=== PATIENT | female | born 1945 | race Caucasian/White ===

== ENCOUNTER → 2017-10-15 | Outpatient (CLI) | payer MEDICARE, OTHER ==
[~2017-10-15] MED LIST: DIAZ5 PO; HYDMOR2 PO; LEVSOD100 PO; METPRE4 PO; METPRE4DP PO; NAPR500 PO; OXYACE5T PO
[2017-10-16 14:44] LABS: Stool Occult Bld Immuno 1 Negative (NEGATIVE); Stool Occult Bld Immuno 2 Negative (NEGATIVE); Stool Occult Bld Immuno 3 Negative (NEGATIVE)
== END | disposition home or self-care (01) ==
LOC: LAB SHORT 01:50 → LAB 01:50 → LAB FUT 10-10 17:10
PROVIDERS: Internal Medicine
DX: D50.9 Iron deficiency anemia, unspecified (principal)
CPT/HCPCS: 82274

== ENCOUNTER → 2018-02-18 | Outpatient (CLI) | payer MEDICARE, OTHER ==
[~2018-02-18] MED LIST changes: +AMIT25 PO; +BUPRENORPHINE1 EAC1; +Calcium Carb 51 EACH PO; +DIAZ10 PO; +ESCI10 PO; +Ferrous Sulfat325 M2 PO; +GABA300 PO; +HYDR1TAB94 PO; +Imitrex100 MG PO; +LEVO-T125 MCG PO; +Multiple Vitam1 EACH PO; +NAPR220 PO; +OXYC10TA19; +PROC25S PR; +TUMERIC; +Vitamin C500 M3 PO
[2018-02-20 14:50] LABS: Stool Occult Bld Immuno 1 Negative (NEGATIVE)
== END ==
LOC: LAB 15:24 → LAB SHORT 15:24 → EDSTATUS 01-27 17:30 → LAB FUT 01-27 17:30
PROVIDERS: Internal Medicine Gastroenterology
DX: K92.1 Melena (principal)
CPT/HCPCS: 82274

== ENCOUNTER 2018-09-10 13:42 | Inpatient (IN) | payer MEDICARE, OTHER ==
[~2018-09-10] VITALS: Ht 154.9 cm; Wt 82.5 kg
[~2018-09-10 13:42] MED LIST changes: -HYDR1TAB94 PO
[2018-09-10 15:09] LABS: BASOPHILS ABSOLUTE AUTO 0.01 K/mm3 (0.00-0.23); BASOPHILS PERCENT AUTO 0 % (0-2); EOSINOPHILS ABSOLUTE AUTO 0.05 K/mm3 (0.00-0.68); EOSINOPHILS PERCENT AUTO 1 % (0-6); IMMATURE GRAN ABSOLUTE AUTO 0.03 K/mm3 (0.00-0.10); IMMATURE GRAN PERCENT AUTO 0 % (0-1); LYMPHOCYTES ABSOLUTE AUTO 1.52 K/mm3 (0.84-5.20); LYMPHOCYTES PERCENT AUTO 20 % (21-46); MONOCYTES ABSOLUTE AUTO 0.84 K/mm3 (0.16-1.47); MONOCYTES PERCENT AUTO 11 % (4-13); Mean Corpuscular HGB 14.4 pg (26.0-34.0); Mean Corpuscular HGB Conc 24.7 g/dL (31.5-36.5); Mean Corpuscular Volume 58 fL (80-100); Mean Platelet Volume 10.1 fL (9.1-12.4); NEUTROPHILS ABSOLUTE AUTO 5.29 K/mm3 (1.96-9.15); NEUTROPHILS PERCENT AUTO 68 % (41-73); NRBC ABSOLUTE 0.05 K/mm3 (0.00-0.02); NRBC Auto 0.6 /100 WBC (0.0-0.2); Platelet Count 495 K/mm3 (150-400); RDW Coefficient Variation 21.2 % (11.7-14.2); RDW Standard Deviation 41.5 fL (35.1-46.3); Red Blood Cell Count 1.67 M/mm3 (3.80-5.20); White Blood Cell Count 7.74 K/mm3 (4.00-11.30)
[2018-09-10 15:14] LABS: Hematocrit 9.7 % (33.0-51.0); Hemoglobin 2.4 g/dL (11.5-16.0)
[2018-09-10 15:20] LABS: Alanine Aminotransfer (ALT/SGP 67 U/L (12-78); Albumin, Blood 3.4 g/dL (3.4-5.0); Albumin/Globulin Ratio 0.9 (0.8-1.8); Alk Phos 124 U/L (50-136); Anion Gap 11 mmol/L (6-16); Aspartate Aminotrans (AST/SGOT 74 U/L (12-37); Bilirubin, Total 0.4 mg/dL (0.1-1.0); Blood Urea Nitrogen 13 mg/dL (8-24); Bun/Creatinine Ratio 16.3 (12.0-20.0); CO2, Blood 21 mmol/L (21-32); Calcium, Blood 8.5 mg/dL (8.5-10.1); Chloride, Blood 107 mmol/L (98-108); Globulin, Blood 3.7 g/dL (2.2-4.0); Glomerular Filtration Rate >60 (60-); Glucose, Blood 114 mg/dL (70-99); Potassium, Blood 3.5 mmol/L (3.5-5.5); Sodium, Blood 139 mmol/L (136-145); Total Protein, Blood 7.1 g/dL (6.4-8.2); Troponin I 0.024 ng/mL (0.000-0.040)
[2018-09-10 15:54] LABS: Percent Saturation 2.1 % (15.0-50.0)
[2018-09-10] MEDS ORDERED: Neurontin 300300 MG PO (16:07)
[2018-09-10] MEDS ORDERED: AMIT25 PO (16:09)
[2018-09-10] MEDS ORDERED: Zantac150 MG PO (16:52)
[2018-09-10] MEDS ORDERED: HYDR1TAB94 PO (16:52)
--- NOTE | 2018-09-11 05:58 | NUR ---
SHIFT SUMMARY PT RESTING COMFORTABLY IN ROOM. PT HAS BEEN RECIEVING PRBC'S T/O SHIFT AND TOLERATING WELL. SINCE ARRIVAL PT HAS FINISHED SECOND UNIT OF BLOOD AND WILL SOON FINISH THIRD. FOURTH UNIT TO BE STARTED THIS AM, PER PROVIDER ORDER. PT TOLERATING BLOOD TRANSFUSIONS WELL, LS REMAIN CLEAR, NO SOB NOTED. VSS. RESP EVEN UNLABORED ON RA W/ SATS >95%. PT COLOR APPEARS TO BE IMPROVING, AND PT REPORTS FEELING WARMER, AND "BETTER". DENIES ANY CP. REPORTS MILD BACK PAIN D/T BACK SURGERY PREVIOUS YEAR. H/H TO BE DRAWN THIS AM, AFTER LAST UNIT OF PRBC'S ADMINISTERED. DENIES OTHER NEEDS AT THIS TIME. CALL LIGHT IN REACH.
--- NOTE | 2018-09-11 07:46 | NUR ---
AM NOTE. ASSUMED CARE OF PT APROX 0700. PT IS A&Ox4 AND SBA IN THE ROOM. PT WAS ADMITTED FOR IRON DEFICENCY ANEMIA. PT IS CURRENTLY GETTING HER 4TH UNIT OF PRBCS. PT'S VS STABLE AT THIS TIME. PT STATES SHE IS FEELING BETTER. PT'S HRR AND L/S HAVE FINE CRACKELS NOTED IN THE BASES BILATERALLY. PT IS ON RA WITH O2 AT 97%. PT IS C/O OF INCREASING BACK PAIN, PT STATES SHE HAS CHRONIC PAIN ISSUES. CALL LIGHT IN REACH, BED IS LOCKED AND LOW WILL CONTINUE TO MONITOR.
[2018-09-11 10:18] LABS: Hemoglobin 7.5 g/dL (11.5-16.0)
--- NOTE | 2018-09-11 18:28 | NUR ---
SHIFT SUMMARY. NO ACUTE CHANGES NOTED THIS SHIFT. PT'S VS HAVE BEEN STABLE. PT C/O OF "FEELING RUMMY." AND BEING "LIGHTHEADED" WHEN SHE GETS UP TO WALK TO THE BATHROOM. PT HAS BEEN VERY AXIOUS THIS SHIFT, PT STATES THAT SHE HAS "RESTLESS LEG SYNDROME" AND THAT SHE IS "HAVING A FLARE UP." PT'S LEGS ARE MOVING BACK AN FORTH ON THE BED, PT IS ALSO ROCKING HERSELF BACK AND FORTH ON THE BED. PT HAS SLEPT FOR APROX 3-4 HOURS THIS SHIFT. PT HAS NOT HAD A BM. PT HAD FAMILY AT THE BEDSIDE DURING DINNER TIME. FAMILY UPDATED. CALL LIGHT IN REACH, BED IS LOCKED AND LOW WILL CONTINUE TO MONITOR.
--- NOTE | 2018-09-11 19:50 | NUR ---
ASSUMED CARE PT SLEEPING IN ROOM COMFORTABLY AT THIS TIME. PER DAY SHIFT PT H/H INCREASED TO THERAPUETIC LEVEL FOR PT. PER SOLER, NO FURTHER BLOOD TO BE GIVEN AT THIS TIME. RESP EVEN UNLBAORED ON RA W/ SATS >92% AT THIS TIME. PT LSEPEING VERY SOUNDLY IN ROOM. DID NOT SLEEP WELL PREVIOUS NIGHT. PT COLOR LOOKS MUCH IMPRVOED AND APPEARS TO BE MUCH MORE COMFORTABLE THAN PREVIOUS NIGHT. CALL LIGHT IS IN REACH.
[2018-09-12 03:59] LABS: Hematocrit 24.6 % (33.0-51.0); Hemoglobin 7.6 g/dL (11.5-16.0)
--- NOTE | 2018-09-12 05:32 | NUR ---
SHIFT SUMMARY PT SLEEPING IN ROOM COMFORTABLY AT THIS TIME. NO ACUTE CHANGES IN STATUS T/O NIGHT. PT SLEPT WELL AND HAD NO COMPLAINTS OF PAIN, OR RESTLESSNESS. PT REPORTS FEELING BETTER, BUT HAS CONTINUED SOB W/ EXERTION. PT COLOR MUCH IMPROVED. PT HAD SOME CONFUSION UPON WAKING, BUT WAS ABLE TO REORIENT W/O ASSIST. RESP EVEN UNLBOARED ON RA W/ SATS >92%. ALL OTHER VSS. DENIES OTHER NEEDS. CALL LIGHT IN REACH.
--- NOTE | 2018-09-12 12:26 | NUR ---
Pastoral care visitation conducted. Pt was speaking with her daughter on the telephone upon entry and finished closing salutations accordingly. Pt was amicable and reports feeling "decent" considering her previous few days. Pt shared about her current condition, her circumstance, and her family support. Active listening provided as pt divulged her thoughts and emotions. Validating feedback, encouragement, and assurance of prayer offered. Pt was appreciative and elevated in mood subsequently.
--- NOTE | 2018-09-12 17:21 | NUR ---
PATIENT BROUGHT TO THE UNIT FROM PCU. PATIENT STATED SHE WANTED A SHOWER WE HAVE HER IV WRAPPED AND SHE IS READY. SHE HAS BEEN GIVEN ALL THE NEEDED SUPPLIES AND WE HAVE BEEN TOLD SHE IS INDEPENDENT IN THE ROOM. CURRENTLY CHECKING ON THE PATIENT EVERY 20 MINUTES TO SEE IF SHE HAS TAKEN HER SHOWER AND HER TELE MAY BE PLACED.
--- NOTE | 2018-09-12 17:27 | NUR ---
PATIENT REQUESTING HER PAIN MEDICATION BE ADJUSTED TO HAVING ONE WHOLE NORCO EVERY 6 HOURS SHE STATES THIS IS HOW SHE TAKES HER MEDICATIONS AT HOME. CURRENTLY THE PATIENT IS ON ONE HALF A NORCO TABLET Q12 AND AWAITING FOR ANY OTHER ANSWERS.
--- NOTE | 2018-09-12 17:29 | NUR ---
SHIFT SUMMARY PATIENT IS PLEASANT, BROUGHT TO THE FLOOR AT 1715. SHE WANTED A SHOWER AND HAS BEEN SET UP FOR THIS. SHE IS INDEPENDENT IN THE ROOM AND ALERT AND ORIENTED. NO ACUTE CONCERNS PER PATIENT.
[2018-09-12 20:23] LABS: Hematocrit 25.2 % (33.0-51.0); Hemoglobin 7.7 g/dL (11.5-16.0)
[2018-09-13 05:49] LABS: BASOPHILS ABSOLUTE AUTO 0.05 K/mm3 (0.00-0.23); BASOPHILS PERCENT AUTO 1 % (0-2); EOSINOPHILS ABSOLUTE AUTO 0.34 K/mm3 (0.00-0.68); EOSINOPHILS PERCENT AUTO 5 % (0-6); Hematocrit 24.8 % (33.0-51.0); Hemoglobin 7.5 g/dL (11.5-16.0); IMMATURE GRAN ABSOLUTE AUTO 0.05 K/mm3 (0.00-0.10); IMMATURE GRAN PERCENT AUTO 1 % (0-1); LYMPHOCYTES ABSOLUTE AUTO 2.02 K/mm3 (0.84-5.20); LYMPHOCYTES PERCENT AUTO 27 % (21-46); MONOCYTES ABSOLUTE AUTO 0.85 K/mm3 (0.16-1.47); MONOCYTES PERCENT AUTO 11 % (4-13); Mean Corpuscular HGB 22.9 pg (26.0-34.0); Mean Corpuscular HGB Conc 30.2 g/dL (31.5-36.5); Mean Corpuscular Volume 76 fL (80-100); Mean Platelet Volume 10.5 fL (9.1-12.4); NEUTROPHILS ABSOLUTE AUTO 4.17 K/mm3 (1.96-9.15); NEUTROPHILS PERCENT AUTO 56 % (41-73); NRBC ABSOLUTE 0.04 K/mm3 (0.00-0.02); NRBC Auto 0.5 /100 WBC (0.0-0.2); Platelet Count 409 K/mm3 (150-400); RDW Coefficient Variation 27.9 % (11.7-14.2); RDW Standard Deviation 72.5 fL (35.1-46.3); Red Blood Cell Count 3.28 M/mm3 (3.80-5.20); White Blood Cell Count 7.48 K/mm3 (4.00-11.30)
--- NOTE | 2018-09-13 06:12 | NUR ---
SHIFT SUMMARY: 72 Y/O FEMALE RESTED COMFORTABLY ALL SHIFT, NPO SINCE MIDNIGHT FOR PENDING EGD TEST THIS AM. PT HAPPY AND COOPERATIVE, DENIES PAIN OR NAUSEA. PTS HG 7.5 THIS AM WITH PATIENT ADVISED OF RESULTS BY THIS NURSE FROM AM LAB DRAW. PTS BED LOW POSITION, CALL LIGHT AT SIDE.
--- NOTE | 2018-09-13 11:00 | NUR ---
Patient confirms NPO status and agrees with scheduled surgery. Lungs clear T/O to Auscultation.
--- NOTE | 2018-09-13 11:15 | NUR ---
09/13/18 1115 Francesca Lindsay History, Chart, Medications and Allergies reviewed before start of procedure.PATIENT DETERMINED TO BE ASA APPROPRIATE FOR PROPOFOL SEDATION PRIOR TO START OF PROCEDURE BY .MONITOR INTACT WITH CONTINUOUS PULSE OXIMETRY AND INTERMITTENT BP.3-LEAD EKG REVIEWED WITH PHYSICIAN PRIOR TO START OF PROCEDURE.O2 VIA N/C INTACT THROUGHOUT SEDATION/PROCEDURE.
[2018-09-13 13:42] LABS: Stool Occult Blood Guaiac 1 Neg (Neg)
--- NOTE | 2018-09-13 18:20 | NUR ---
shift summary patient has gone for a push egd today. no acute concerns from the patient. she reports that she was ready to go home but her family member was not home until tomorrow. patient has had multiple visitors in all day. dr. figueroa's plan is to discharge the patient to home tomorrow. no seen cause of bleeding. patient noted to have a hiatal hernia and an ulcer with no management from dr. campos needed.
--- NOTE | 2018-09-14 04:02 | NUR ---
SHIFT SUMMARY: 75 Y/O FEMALE RESTED COMFORTABLY ALL SHIFT WITH NO PAIN OR NAUSEA. PT HOPING TO BE DISCHARGED HOME TODAY. PTS BED LOW POSITION, CALL LIGHT AT SIDE.
[2018-09-14 04:45] LABS: BASOPHILS ABSOLUTE AUTO 0.05 K/mm3 (0.00-0.23); BASOPHILS PERCENT AUTO 1 % (0-2); EOSINOPHILS ABSOLUTE AUTO 0.38 K/mm3 (0.00-0.68); EOSINOPHILS PERCENT AUTO 4 % (0-6); Hemoglobin 7.6 g/dL (11.5-16.0); IMMATURE GRAN ABSOLUTE AUTO 0.07 K/mm3 (0.00-0.10); IMMATURE GRAN PERCENT AUTO 1 % (0-1); LYMPHOCYTES ABSOLUTE AUTO 1.73 K/mm3 (0.84-5.20); LYMPHOCYTES PERCENT AUTO 19 % (21-46); MONOCYTES PERCENT AUTO 12 % (4-13); Mean Platelet Volume 10.2 fL (9.1-12.4); NEUTROPHILS ABSOLUTE AUTO 5.74 K/mm3 (1.96-9.15); NEUTROPHILS PERCENT AUTO 63 % (41-73); NRBC ABSOLUTE 0.05 K/mm3 (0.00-0.02); NRBC Auto 0.6 /100 WBC (0.0-0.2); Platelet Count 402 K/mm3 (150-400); White Blood Cell Count 9.07 K/mm3 (4.00-11.30)
[2018-09-14 04:47] LABS: Hematocrit 26.3 % (33.0-51.0)
[2018-09-14 04:48] LABS: Mean Corpuscular HGB Conc 28.9 g/dL (31.5-36.5); Mean Corpuscular Volume 80 fL (80-100)
[2018-09-14] MEDS ORDERED: OMEPRAZOLE20 MG PO (12:40)
[2018-09-14] MEDS ORDERED: ACET325 PO (12:41)
[2018-09-14] MEDS ORDERED: ESCI10 PO (12:42)
[2018-09-14] MEDS ORDERED: MELATONIN5 M1 PO (12:43)
[2018-09-14] MEDS ORDERED: Sucralfate1 GM/10 ML PO (13:16)
--- NOTE | 2018-09-14 15:01 | NUR ---
discharge summary patient is pleasant. all information given to the patient and her family members prior to discharge. patients iv was removed yesterday evening as it had infiltrated. there is no acute concerns from the patient and time of discharge and will assess for any changes prior to discharge. patient was wheeled out all medications were sent to the pharmacy.
[2018-12-19] MEDS ORDERED: Imitrex50 MG PO (13:40)
[2018-12-19] MEDS ORDERED: AMIT25 PO (13:40)
[2018-12-19] MEDS ORDERED: PROC25S PR (13:41)
[2018-12-19] MEDS ORDERED: Daily Multiple1 EACH PO (13:42)
[2018-12-19] MEDS ORDERED: DIAZ10 PO (13:42)
[2018-12-19] MEDS ORDERED: Vitamin K100 MCG (13:43)
[2018-12-19] MEDS ORDERED: SUCR1 PO (13:43)
[2018-12-19] MEDS ORDERED: ASCO500 PO (13:43)
== END 2018-09-14 14:36 | disposition home or self-care (01) | DRG 812 ==
LOC: ER 13:42 → PCU 16:46 → ERHOLD 16:46 → MEDS 16:46 → PCU 22:16 → MEDS 09-12 17:01 → ENPENDDIS 09-14 12:44 → MEDS 09-14 14:36
PROVIDERS: Emergency Medicine; Hospitalist; Internal Medicine Gastroenterology; Physician Assistant; ADMIT Internal Medicine
PROC: 30233N1 Transfusion of Nonautologous Red Blood Cells into Peripheral Vein, Percutaneous Approach (ICD-10-PCS; 2018-09-11)
PROC: 0DJ08ZZ Inspection of Upper Intestinal Tract, Via Natural or Artificial Opening Endoscopic (ICD-10-PCS; principal; 2018-09-13 09:00)
DX: D50.9 Iron deficiency anemia, unspecified (principal); K22.70 Barrett's esophagus without dysplasia; K44.9 Diaphragmatic hernia without obstruction or gangrene; G89.29 Other chronic pain; G43.909 Migraine, unspecified, not intractable, without status migrainosus; E03.9 Hypothyroidism, unspecified; Z87.891 Personal history of nicotine dependence; M54.9 Dorsalgia, unspecified; K25.9 Gastric ulcer, unspecified as acute or chronic, without hemorrhage or perforation
CPT/HCPCS: 36415; 36430; 71046; 80053; 82272; 83540; 83550; 83690; 84484; 85014; 85018; 85025; 86850; 86900; 86901; 86923; 93005; 93010; 96374; 96376; 99285-25; A9270; A9270-GY; C9113; J2405; J2704; J2916; J7030; J7120; P9016

== ENCOUNTER 2018-12-26 12:20 | Day surgery (SDC) | payer MEDICARE, OTHER ==
[~2018-12-26] VITALS: Ht 152.4 cm; Wt 73.6 kg
[~2018-12-26 12:20] MED LIST changes: +ACET325 PO; +ASCO500 PO; +Daily Multiple1 EACH PO; +HYDR1TAB94 PO; +Imitrex50 MG PO; +MELATONIN5 M1 PO; +Neurontin 300300 MG PO; +OMEPRAZOLE20 MG PO; +SUCR1 PO; +Sucralfate1 GM/10 ML PO; +Vitamin K100 MCG; +Zantac150 MG PO
== END 2018-12-26 14:13 | disposition home or self-care (01) ==
LOC: ORSCSDS 12:20
PROVIDERS: Internal Medicine Gastroenterology
PROC: 0DB58ZX Excision of Esophagus, Via Natural or Artificial Opening Endoscopic, Diagnostic (ICD-10-PCS; principal; 2018-12-26 13:30)
DX: D50.9 Iron deficiency anemia, unspecified (principal); K25.3 Acute gastric ulcer without hemorrhage or perforation; K44.9 Diaphragmatic hernia without obstruction or gangrene; K21.9 Gastro-esophageal reflux disease without esophagitis; Z86.73 Personal history of transient ischemic attack (TIA), and cerebral infarction without residual deficits; E03.9 Hypothyroidism, unspecified; Z79.899 Other long term (current) drug therapy
CPT/HCPCS: 88305; J2704; J7120

== ENCOUNTER → 2019-03-17 | Outpatient (CLI) | payer MEDICARE, OTHER ==
[2019-03-17 18:48] LABS: Blood Urea Nitrogen 29 mg/dL (8-24); Creatinine, Blood 0.68 mg/dL (0.40-1.00); Glomerular Filtration Rate >60 (60-)
== END ==
LOC: LAB SHORT 17:29 → LAB 17:29
PROVIDERS: Hospitalist
DX: M54.5 Low back pain (principal)
CPT/HCPCS: 36415; 82565; 84520

== ENCOUNTER 2019-04-06 08:33 | Day surgery (SDC) | payer MEDICARE, OTHER ==
--- NOTE | 2019-04-06 12:27 | NUR ---
PATIENT TOLERATED RECOVERY WELL. HOME PAIN MEDS RESOLVED CHRONIC PAIN. PT OUR VIA WC WITH SPOUSE. Discharge instructions reviewed with patient. Patient verbalizes understanding. Copy given to patient to take home.
== END 2019-04-06 23:02 | disposition home or self-care (01) ==
LOC: RAD 08:33 → CT 10:00 → RAD 23:02
DX: M54.5 Low back pain (principal); G89.29 Other chronic pain; G43.909 Migraine, unspecified, not intractable, without status migrainosus; E78.5 Hyperlipidemia, unspecified; E03.9 Hypothyroidism, unspecified; Z79.899 Other long term (current) drug therapy; Z79.891 Long term (current) use of opiate analgesic; Z88.6 Allergy status to analgesic agent; Z88.2 Allergy status to sulfonamides; Z88.1 Allergy status to other antibiotic agents; Z88.8 Allergy status to other drugs, medicaments and biological substances
CPT/HCPCS: 62304; 72132; A9270-GY; Q9966

== ENCOUNTER → 2019-05-26 | Outpatient (CLI) | payer MEDICARE, OTHER ==
[2019-05-26 18:46] LABS: BASOPHILS ABSOLUTE AUTO 0.04 K/mm3 (0.00-0.23); BASOPHILS PERCENT AUTO 1 % (0-2); EOSINOPHILS ABSOLUTE AUTO 0.17 K/mm3 (0.00-0.68); EOSINOPHILS PERCENT AUTO 2 % (0-6); Hematocrit 30.9 % (33.0-51.0); Hemoglobin 8.8 g/dL (11.5-16.0); IMMATURE GRAN ABSOLUTE AUTO 0.04 K/mm3 (0.00-0.10); IMMATURE GRAN PERCENT AUTO 1 % (0-1); LYMPHOCYTES ABSOLUTE AUTO 2.04 K/mm3 (0.84-5.20); LYMPHOCYTES PERCENT AUTO 29 % (21-46); MONOCYTES ABSOLUTE AUTO 0.65 K/mm3 (0.16-1.47); MONOCYTES PERCENT AUTO 9 % (4-13); Mean Corpuscular HGB 25.4 pg (26.0-34.0); Mean Corpuscular HGB Conc 28.5 g/dL (31.5-36.5); Mean Corpuscular Volume 89 fL (80-100); Mean Platelet Volume 11.3 fL (9.1-12.4); NEUTROPHILS ABSOLUTE AUTO 4.03 K/mm3 (1.96-9.15); NEUTROPHILS PERCENT AUTO 58 % (41-73); Platelet Count 471 K/mm3 (150-400); RDW Coefficient Variation 15.8 % (11.7-14.2); RDW Standard Deviation 51.2 fL (35.1-46.3); Red Blood Cell Count 3.47 M/mm3 (3.80-5.20); White Blood Cell Count 6.97 K/mm3 (4.00-11.30)
== END ==
LOC: LAB SHORT 18:00 → LAB 18:00
PROVIDERS: Hospitalist
DX: K29.70 Gastritis, unspecified, without bleeding (principal)
CPT/HCPCS: 85025

== ENCOUNTER → 2019-11-03 | Outpatient (CLI) | payer MEDICARE, OTHER ==
[~2019-11-03] MED LIST changes: +Ativan1 MG PO; +BENZ100A PO; +EUTHYROX125 MCG PO; -LEVO-T125 MCG PO; +MIRT15 PO; +PANT40 PO; +TIZA4 PO; +TRAZ100 PO
[2019-11-04 14:29] LABS: Stool Occult Bld Immuno 1 Negative (NEGATIVE); Stool Occult Bld Immuno 2 Negative (NEGATIVE)
== END | disposition home or self-care (01) ==
LOC: LAB 14:57 → LAB SHORT 14:57
PROVIDERS: Internal Medicine Gastroenterology
DX: K25.0 Acute gastric ulcer with hemorrhage (principal); K92.1 Melena
CPT/HCPCS: 82274

== ENCOUNTER 2020-02-13 16:34 | Emergency (ER) | payer MEDICARE ==
[~2020-02-13] VITALS: Ht 154.9 cm; Wt 77.1 kg
[2020-02-13 17:08] LABS: BASOPHILS ABSOLUTE AUTO 0.03 K/mm3 (0.00-0.23); BASOPHILS PERCENT AUTO 0 % (0-2); EOSINOPHILS ABSOLUTE AUTO 0.03 K/mm3 (0.00-0.68); EOSINOPHILS PERCENT AUTO 0 % (0-6); Hematocrit 31.1 % (33.0-51.0); Hemoglobin 9.1 g/dL (11.5-16.0); IMMATURE GRAN ABSOLUTE AUTO 0.02 K/mm3 (0.00-0.10); IMMATURE GRAN PERCENT AUTO 0 % (0-1); LYMPHOCYTES ABSOLUTE AUTO 1.64 K/mm3 (0.84-5.20); LYMPHOCYTES PERCENT AUTO 18 % (21-46); MONOCYTES ABSOLUTE AUTO 0.72 K/mm3 (0.16-1.47); MONOCYTES PERCENT AUTO 8 % (4-13); Mean Corpuscular HGB 25.3 pg (26.0-34.0); Mean Corpuscular HGB Conc 29.3 g/dL (31.5-36.5); Mean Corpuscular Volume 86 fL (80-100); Mean Platelet Volume 9.2 fL (9.1-12.4); NEUTROPHILS ABSOLUTE AUTO 6.57 K/mm3 (1.96-9.15); NEUTROPHILS PERCENT AUTO 73 % (41-73); Platelet Count 576 K/mm3 (150-400); RDW Coefficient Variation 17.8 % (11.7-14.2); RDW Standard Deviation 56.2 fL (35.1-46.3); White Blood Cell Count 9.01 K/mm3 (4.00-11.30)
[2020-02-13 17:33] LABS: Alanine Aminotransfer (ALT/SGP 39 U/L (12-78); Albumin/Globulin Ratio 0.9 (0.8-1.8); Alk Phos 94 U/L (50-136); Anion Gap 9 mmol/L (6-16); Aspartate Aminotrans (AST/SGOT 22 U/L (12-37); Bilirubin, Total 0.2 mg/dL (0.1-1.0); Blood Urea Nitrogen 20 mg/dL (8-24); Bun/Creatinine Ratio 29.7 (12.0-20.0); CO2, Blood 21 mmol/L (21-32); Calcium, Blood 9.3 mg/dL (8.5-10.1); Chloride, Blood 108 mmol/L (98-108); Creatinine, Blood 0.67 mg/dL (0.40-1.00); Globulin, Blood 4.3 g/dL (2.2-4.0); Glomerular Filtration Rate >60 (60-); Glucose, Blood 109 mg/dL (70-99); Potassium, Blood 3.8 mmol/L (3.5-5.5); Sodium, Blood 138 mmol/L (136-145); Total Protein, Blood 8.3 g/dL (6.4-8.2)
[2020-02-13] MEDS ORDERED: IMITREX100 MG PO (18:42)
[2020-02-13 19:01] LABS: CPK Creatine Kinase 53 U/L (26-193); Troponin I <0.015 ng/mL (0.000-0.040)
[2020-02-13 20:55] LABS: Influenza A, PCR Negative (NEGATIVE); Influenza B, PCR Negative (NEGATIVE); Resp Syncytial Virus, PCR Negative (NEGATIVE); SARS-Cov-2 (COVID-19) PCR, MMC Negative (NEGATIVE)
[2020-02-13 21:45] LABS: Source, Urine Voided
[2020-02-13 21:46] LABS: Bilirubin, Urine Neg (Neg); Blood, Urine 4+ (Neg); Glucose Qualitative, Urine Neg (Neg); Ketones, Urine Neg (Neg); Leukocyte Esterase, Urine 3+ (Neg); Nitrite, Urine Neg (Neg); Protein, Urine 1+ (Neg); Specific Gravity, Urine 1.015 (1.003-1.022); Urobilinogen, Urine NORM (Normal)
[2020-02-13 21:48] LABS: Appearance, Urine Hazy (Clear); Color, Urine Yellow (P-Yellow)
[2020-02-13 21:54] LABS: Amorphous Light (0-Heavy); Bacteria Few /hpf; Mucus Light (0-Heavy); Red Blood Cells, Urine 0-2 /hpf (0-2); Squamous Epithelial Cells Few /hpf (Few)
[2020-02-13] MEDS ORDERED: KEFLEX500 MG PO (23:57)
== END 2020-02-14 | disposition home or self-care (01) ==
LOC: ER 16:34
PROVIDERS: Emergency Medicine; Physician Assistant
DX: N39.0 Urinary tract infection, site not specified (principal); D64.9 Anemia, unspecified; R51.9 Headache, unspecified; Z88.6 Allergy status to analgesic agent; Z88.2 Allergy status to sulfonamides; Z88.8 Allergy status to other drugs, medicaments and biological substances; Z79.899 Other long term (current) drug therapy; Z20.828 Contact with and (suspected) exposure to other viral communicable diseases
CPT/HCPCS: 0241U; 71045; 74177; 80053; 81001; 82550; 83605; 83690; 84484; 85025; 87086; 93005; 93010; 96365-59; 96375; 96376; 99285-25; A9270-GY; J0696; J1200; J2405; J2765; J3010; J7030; Q9967

== ENCOUNTER 2020-04-19 13:44 | Observation (INO) | payer MEDICARE, OTHER ==
[~2020-04-19] VITALS: Ht 154.9 cm; Wt 88.5 kg
[~2020-04-19 13:44] MED LIST changes: -Ativan1 MG PO; -EUTHYROX125 MCG PO; -GABA300 PO; +KEFLEX500 MG PO; -Neurontin 300300 MG PO; -PANT40 PO; -TRAZ100 PO
[2020-04-19 14:40] LABS: BASOPHILS ABSOLUTE AUTO 0.04 K/mm3 (0.00-0.23); BASOPHILS PERCENT AUTO 1 % (0-2); EOSINOPHILS ABSOLUTE AUTO 0.01 K/mm3 (0.00-0.68); EOSINOPHILS PERCENT AUTO 0 % (0-6); Hematocrit 24.1 % (33.0-51.0); Hemoglobin 6.3 g/dL (11.5-16.0); IMMATURE GRAN ABSOLUTE AUTO 0.02 K/mm3 (0.00-0.10); IMMATURE GRAN PERCENT AUTO 0 % (0-1); LYMPHOCYTES ABSOLUTE AUTO 1.18 K/mm3 (0.84-5.20); LYMPHOCYTES PERCENT AUTO 15 % (21-46); MONOCYTES ABSOLUTE AUTO 0.67 K/mm3 (0.16-1.47); MONOCYTES PERCENT AUTO 8 % (4-13); Mean Corpuscular HGB 19.6 pg (26.0-34.0); Mean Corpuscular HGB Conc 26.1 g/dL (31.5-36.5); Mean Corpuscular Volume 75 fL (80-100); Mean Platelet Volume 9.3 fL (9.1-12.4); NEUTROPHILS ABSOLUTE AUTO 6.11 K/mm3 (1.96-9.15); NEUTROPHILS PERCENT AUTO 76 % (41-73); Platelet Count 516 K/mm3 (150-400); RDW Coefficient Variation 17.4 % (11.7-14.2); RDW Standard Deviation 47.6 fL (35.1-46.3); Red Blood Cell Count 3.21 M/mm3 (3.80-5.20); White Blood Cell Count 8.03 K/mm3 (4.00-11.30)
[2020-04-19 14:57] LABS: Alanine Aminotransfer (ALT/SGP 33 U/L (12-78); Albumin, Blood 3.6 g/dL (3.4-5.0); Albumin/Globulin Ratio 0.8 (0.8-1.8); Alk Phos 96 U/L (50-136); Anion Gap 9 mmol/L (6-16); Aspartate Aminotrans (AST/SGOT 24 U/L (12-37); Bilirubin, Total 0.2 mg/dL (0.1-1.0); Blood Urea Nitrogen 17 mg/dL (8-24); Bun/Creatinine Ratio 28.5 (12.0-20.0); CO2, Blood 21 mmol/L (21-32); Calcium, Blood 9.3 mg/dL (8.5-10.1); Chloride, Blood 108 mmol/L (98-108); Globulin, Blood 4.5 g/dL (2.2-4.0); Glomerular Filtration Rate >60 (60-); Glucose, Blood 112 mg/dL (70-99); Sodium, Blood 138 mmol/L (136-145); Total Protein, Blood 8.1 g/dL (6.4-8.2)
[2020-04-19] MEDS ORDERED: MOTION RELIEF25 M1 PO (16:08)
[2020-04-19] MEDS ORDERED: Ativan1 MG PO (16:08)
[2020-04-19] MEDS ORDERED: REMERON15 M1 PO (16:09)
[2020-04-19] MEDS ORDERED: TRAZ100 PO (16:09)
[2020-04-19] MEDS ORDERED: ZANAFLEX4 M4 PO (16:09)
[2020-04-19] MEDS ORDERED: GABA300 PO (16:15)
[2020-04-19] MEDS ORDERED: PANT40 PO (16:15)
[2020-04-19] MEDS ORDERED: Neurontin 300300 MG PO (16:16)
[2020-04-19] MEDS ORDERED: ESCI10 PO (16:17)
[2020-04-19] MEDS ORDERED: IMITREX50 MG PO (16:30)
[2020-04-19] MEDS ORDERED: EUTHYROX125 MCG PO (16:55)
[2020-04-19 20:27] LABS: Hematocrit 25.3 % (33.0-51.0); Hemoglobin 7.1 g/dL (11.5-16.0)
[2020-04-20 00:28] LABS: Hematocrit 25.5 % (33.0-51.0); Hemoglobin 7.2 g/dL (11.5-16.0)
--- NOTE | 2020-04-20 04:15 | NUR ---
SHIFT SUMMARY ADMITTED FOR GI BLEED. FULL CODE. 1 UNIT OF BLOOD TRANSFUSED. Q4 HR H&H LABS. HGB HAS RISEN, HGB 7.2 AT LAST LAB - AWAITING NEXT LAB. PROTONIX INFUSING ORDERED. NS W/KCL INFUSING ORDERED. PT IS NPO. PT REQUESTED IV PAIN AND ANXIETY MEDICATION THIS SHIFT. GI CONSULT IS DR LLOYD.
[2020-04-20 05:24] LABS: BASOPHILS ABSOLUTE AUTO 0.04 K/mm3 (0.00-0.23); BASOPHILS PERCENT AUTO 1 % (0-2); EOSINOPHILS ABSOLUTE AUTO 0.14 K/mm3 (0.00-0.68); EOSINOPHILS PERCENT AUTO 2 % (0-6); Hematocrit 26.2 % (33.0-51.0); Hemoglobin 7.3 g/dL (11.5-16.0); IMMATURE GRAN ABSOLUTE AUTO 0.01 K/mm3 (0.00-0.10); IMMATURE GRAN PERCENT AUTO 0 % (0-1); LYMPHOCYTES ABSOLUTE AUTO 1.95 K/mm3 (0.84-5.20); LYMPHOCYTES PERCENT AUTO 27 % (21-46); MONOCYTES ABSOLUTE AUTO 0.71 K/mm3 (0.16-1.47); MONOCYTES PERCENT AUTO 10 % (4-13); Mean Corpuscular HGB 21.5 pg (26.0-34.0); Mean Corpuscular HGB Conc 27.9 g/dL (31.5-36.5); Mean Corpuscular Volume 77 fL (80-100); NEUTROPHILS ABSOLUTE AUTO 4.46 K/mm3 (1.96-9.15); NEUTROPHILS PERCENT AUTO 61 % (41-73); NRBC ABSOLUTE 0.02 K/mm3 (0.00-0.02); NRBC Auto 0.3 /100 WBC (0.0-0.2); RDW Coefficient Variation 17.7 % (11.7-14.2); RDW Standard Deviation 49.8 fL (35.1-46.3); Red Blood Cell Count 3.39 M/mm3 (3.80-5.20); White Blood Cell Count 7.31 K/mm3 (4.00-11.30)
[2020-04-20 05:50] LABS: Mean Platelet Volume 9.2 fL (9.1-12.4)
[2020-04-20 05:52] LABS: Anion Gap 6 mmol/L (6-16); Blood Urea Nitrogen 15 mg/dL (8-24); Bun/Creatinine Ratio 23.9 (12.0-20.0); CO2, Blood 23 mmol/L (21-32); Calcium, Blood 8.3 mg/dL (8.5-10.1); Chloride, Blood 110 mmol/L (98-108); Creatinine, Blood 0.63 mg/dL (0.40-1.00); Ferritin, Serum 6 ng/mL (8-252); Glomerular Filtration Rate >60 (60-); Glucose, Blood 97 mg/dL (70-99); Iron Serum 65 ug/dL (50-170); Percent Saturation 12.2 % (15.0-50.0); Potassium, Blood 4.2 mmol/L (3.5-5.5); Sodium, Blood 139 mmol/L (136-145); Total Iron Binding Capacity 531 ug/dL (250-450)
[2020-04-20 07:34] LABS: Influenza A, PCR NEGATIVE (NEGATIVE); Influenza B, PCR NEGATIVE (NEGATIVE); Resp Syncytial Virus, PCR NEGATIVE (NEGATIVE); SARS-Cov-2 (COVID-19) PCR, MMC NEGATIVE (NEGATIVE)
--- NOTE | 2020-04-20 08:46 | NUR ---
04/20/20 0846 GURDEEP OLVERA History, Chart, Medications and Allergies reviewed before start of procedure. 3-LEAD EKG REVIEWED WITH PHYSICIAN PRIOR TO START OF PROCEDURE. MONITOR INTACT WITH CONTINUOUS PULSE OXIMETRY AND INTERMITTENT BP. O2 VIA N/C INTACT THROUGHOUT SEDATION/PROCEDURE. PATIENT DETERMINED TO BE ASA APPROPRIATE FOR PROPOFOL SEDATION PRIOR TO START OF PROCEDURE BY DR. LLOYD.
[2020-04-20 10:04] LABS: Hematocrit 25.6 % (33.0-51.0)
--- NOTE | 2020-04-20 11:57 | NUR ---
Spiritual care visit conducted. Upon receiving an admit referral for spiritual care, I visit patient. She only has time to tell me about the events that led to her hospitalization, her procedure this morning and the wonderful support system she has in place before she has to use the restroom. I tell patient I will check-in with her later and she states that she would like that. I will continue to remain available to patient and family.
[2020-04-20 14:56] LABS: Hematocrit 26.9 % (33.0-51.0); Hemoglobin 7.5 g/dL (11.5-16.0)
[2020-04-20] MEDS ORDERED: OMEP20ER PO (15:58)
[2020-04-20] MEDS ORDERED: ACET325 PO (15:58)
[2020-04-20] MEDS ORDERED: HYDR1TAB94 PO (15:59)
[2020-04-20] MEDS ORDERED: MURINE EAR BOTHEARS (15:59)
[2020-04-20] MEDS ORDERED: DIAZ5 PO (16:00)
[2020-04-20] MEDS ORDERED: FERSU300 PO (16:18)
== END 2020-04-20 16:50 | disposition home or self-care (01) ==
LOC: ER 13:44 → ERHOLD 13:45 → MEDS 13:45
PROVIDERS: Internal Medicine Gastroenterology; Nurse Practitioner Acute Care; Physician Assistant; Student in an Organized Health Care Education/Training Program; ADMIT Internal Medicine
DX: D62 Acute posthemorrhagic anemia (principal); K44.9 Diaphragmatic hernia without obstruction or gangrene; K25.4 Chronic or unspecified gastric ulcer with hemorrhage; K29.51 Unspecified chronic gastritis with bleeding; K22.2 Esophageal obstruction; K22.70 Barrett's esophagus without dysplasia; G43.909 Migraine, unspecified, not intractable, without status migrainosus; E03.9 Hypothyroidism, unspecified; K21.9 Gastro-esophageal reflux disease without esophagitis; F41.9 Anxiety disorder, unspecified; F32.9 Major depressive disorder, single episode, unspecified; H61.23 Impacted cerumen, bilateral; G89.29 Other chronic pain; M54.5 Low back pain; G47.00 Insomnia, unspecified; R42 Dizziness and giddiness; Z20.822 Contact with and (suspected) exposure to COVID-19; Z86.711 Personal history of pulmonary embolism; Z88.6 Allergy status to analgesic agent; Z88.1 Allergy status to other antibiotic agents; Z88.2 Allergy status to sulfonamides; Z88.8 Allergy status to other drugs, medicaments and biological substances; Z87.11 Personal history of peptic ulcer disease; Z79.899 Other long term (current) drug therapy
CPT/HCPCS: 0241U; 36415; 36430; 80048; 80053; 82728; 83540; 83550; 85014; 85018; 85025; 86850; 86900; 86901; 86923; 88305; 88342; 93005; 93010; 96361; 96365; 96375; 96376; 99285-25; A9270; C1726; C9113; G0378; J1170; J2060; J2405; J2704; J3010; J3480; J7030; J7120; P9016

== ENCOUNTER → 2020-12-09 | Outpatient (CLI) | payer MEDICARE, OTHER ==
[~2020-12-09] MED LIST changes: +Ativan1 MG PO; +DOCU100 PO; +ESCITALOPRAM OX10 M1 PO; +EUTHYROX125 MCG PO; +FERSU300 PO; +GABA300 PO; +IMITREX50 MG PO; +MOTION RELIEF25 M1 PO; +MURINE EAR BOTHEARS; +Neurontin 300300 MG PO; +OMEP20ER PO; +PANT40 PO; +PANTOPRAZOLE SO40 M2 PO; +REMERON15 M1 PO; +TRAZ100 PO; +ZANAFLEX PO; +ZANAFLEX4 M4 PO
[2020-12-09 15:27] LABS: BASOPHILS ABSOLUTE AUTO 0.04 K/mm3 (0.00-0.23); BASOPHILS PERCENT AUTO 1 % (0-2); EOSINOPHILS ABSOLUTE AUTO 0.25 K/mm3 (0.00-0.68); EOSINOPHILS PERCENT AUTO 5 % (0-6); Hematocrit 20.9 % (33.0-51.0); IMMATURE GRAN ABSOLUTE AUTO 0.02 K/mm3 (0.00-0.10); IMMATURE GRAN PERCENT AUTO 0 % (0-1); LYMPHOCYTES ABSOLUTE AUTO 1.29 K/mm3 (0.84-5.20); LYMPHOCYTES PERCENT AUTO 23 % (21-46); MONOCYTES ABSOLUTE AUTO 0.58 K/mm3 (0.16-1.47); MONOCYTES PERCENT AUTO 10 % (4-13); Mean Corpuscular HGB 22.8 pg (26.0-34.0); Mean Corpuscular HGB Conc 28.7 g/dL (31.5-36.5); Mean Corpuscular Volume 80 fL (80-100); Mean Platelet Volume 9.3 fL (9.1-12.4); NEUTROPHILS ABSOLUTE AUTO 3.41 K/mm3 (1.96-9.15); NEUTROPHILS PERCENT AUTO 61 % (41-73); NRBC ABSOLUTE 0.02 K/mm3 (0.00-0.02); NRBC Auto 0.4 /100 WBC (0.0-0.2); Platelet Count 363 K/mm3 (150-400); RDW Standard Deviation 65.4 fL (35.1-46.3); Red Blood Cell Count 2.63 M/mm3 (3.80-5.20); White Blood Cell Count 5.59 K/mm3 (4.00-11.30)
[2020-12-09 15:46] LABS: Alanine Aminotransfer (ALT/SGP 28 U/L (12-78); Albumin, Blood 3.6 g/dL (3.4-5.0); Albumin/Globulin Ratio 0.9 (0.8-1.8); Alk Phos 81 U/L (40-126); Anion Gap 11 mmol/L (6-16); Aspartate Aminotrans (AST/SGOT 21 U/L (12-37); Bilirubin, Total 0.3 mg/dL (0.1-1.0); Blood Urea Nitrogen 15 mg/dL (8-24); CO2, Blood 26 mmol/L (21-32); Calcium, Blood 8.4 mg/dL (8.5-10.1); Chloride, Blood 105 mmol/L (98-108); Creatinine, Blood 0.75 mg/dL (0.40-1.00); Glomerular Filtration Rate >60 (60-); Glucose, Blood 109 mg/dL (70-99); Potassium, Blood 3.9 mmol/L (3.5-5.5); Sodium, Blood 142 mmol/L (136-145); Thyroid Stimulating Hormone 5.664 uIU/mL (0.360-4.800); Total Protein, Blood 7.6 g/dL (6.4-8.2)
== END | disposition home or self-care (01) ==
LOC: LAB SHORT 15:21 → LAB 15:21
PROVIDERS: Physician Assistant
DX: R06.00 Dyspnea, unspecified (principal); R53.83 Other fatigue; Z87.19 Personal history of other diseases of the digestive system
CPT/HCPCS: 80053; 84443; 85025; 85379

== ENCOUNTER → 2020-12-13 | Outpatient (CLI) | payer MEDICARE, OTHER ==
[2020-12-13 15:33] LABS: Hematocrit 31.3 % (33.0-51.0); Hemoglobin 9.4 g/dL (11.5-16.0)
== END | disposition home or self-care (01) ==
LOC: LAB SHORT 14:45
PROVIDERS: Hospitalist
DX: D50.0 Iron deficiency anemia secondary to blood loss (chronic) (principal)
CPT/HCPCS: 85014; 85018

== ENCOUNTER 2021-01-03 06:54 | Observation (INO) | payer MEDICARE, OTHER ==
[~2021-01-03] VITALS: Ht 154.9 cm; Wt 83.0 kg
[2021-01-04 05:01] LABS: BASOPHILS ABSOLUTE AUTO 0.02 K/mm3 (0.00-0.23); BASOPHILS PERCENT AUTO 0 % (0-2); EOSINOPHILS PERCENT AUTO 0 % (0-6); Hematocrit 30.2 % (33.0-51.0); IMMATURE GRAN ABSOLUTE AUTO 0.03 K/mm3 (0.00-0.10); IMMATURE GRAN PERCENT AUTO 0 % (0-1); LYMPHOCYTES ABSOLUTE AUTO 1.44 K/mm3 (0.84-5.20); LYMPHOCYTES PERCENT AUTO 15 % (21-46); MONOCYTES ABSOLUTE AUTO 0.89 K/mm3 (0.16-1.47); MONOCYTES PERCENT AUTO 9 % (4-13); Mean Corpuscular HGB 25.4 pg (26.0-34.0); Mean Corpuscular HGB Conc 29.8 g/dL (31.5-36.5); Mean Corpuscular Volume 85 fL (80-100); NEUTROPHILS ABSOLUTE AUTO 7.26 K/mm3 (1.96-9.15); NEUTROPHILS PERCENT AUTO 75 % (41-73); Platelet Count 364 K/mm3 (150-400); RDW Coefficient Variation 20.8 % (11.7-14.2); Red Blood Cell Count 3.55 M/mm3 (3.80-5.20); White Blood Cell Count 9.64 K/mm3 (4.00-11.30)
[2021-01-04 05:16] LABS: Anion Gap 5 mmol/L (6-16); Blood Urea Nitrogen 16 mg/dL (8-24); Bun/Creatinine Ratio 26.5 (12.0-20.0); CO2, Blood 26 mmol/L (21-32); Calcium, Blood 8.4 mg/dL (8.5-10.1); Chloride, Blood 107 mmol/L (98-108); Glomerular Filtration Rate >60 (60-); Glucose, Blood 113 mg/dL (70-99); Potassium, Blood 3.6 mmol/L (3.5-5.5); Sodium, Blood 138 mmol/L (136-145)
[2021-01-05] MEDS ORDERED: HYDR1TAB94 PO (08:56)
[2021-01-05] MEDS ORDERED: ONDA4ODT MM (08:58)
== END 2021-01-05 11:31 | disposition home or self-care (01) ==
LOC: ORSCMMR 06:54 → ORD 08:30 → SURS 12:59 → ORSCMMR 12:59 → SURS 14:24
PROVIDERS: ADMIT Surgery
PROC: 0DV44ZZ Restriction of Esophagogastric Junction, Percutaneous Endoscopic Approach (ICD-10-PCS; principal; 2021-01-03 08:30)
PROC: 0BUT4JZ Supplement Diaphragm with Synthetic Substitute, Percutaneous Endoscopic Approach (ICD-10-PCS; principal; 2021-01-03 08:30)
DX: K44.9 Diaphragmatic hernia without obstruction or gangrene (principal); K25.4 Chronic or unspecified gastric ulcer with hemorrhage; E03.9 Hypothyroidism, unspecified; E78.5 Hyperlipidemia, unspecified; Z88.6 Allergy status to analgesic agent; Z88.1 Allergy status to other antibiotic agents; Z88.2 Allergy status to sulfonamides; Z88.8 Allergy status to other drugs, medicaments and biological substances
CPT/HCPCS: 36415; 80048; 85025; 96372; 96375; 96376; A9270; C1781; G0378; J0690; J1100; J1170; J1650; J1885; J2270; J2370; J2405; J2550; J2704; J2765; J3010; J7120

== ENCOUNTER → 2021-11-09 | Outpatient (CLI) | payer MEDICARE, OTHER ==
[~2021-11-09] MED LIST changes: +ONDA4ODT MM
[2021-11-09 19:37] LABS: BASOPHILS ABSOLUTE AUTO 0.03 K/mm3 (0.00-0.23); BASOPHILS PERCENT AUTO 0 % (0-2); EOSINOPHILS ABSOLUTE AUTO 0.04 K/mm3 (0.00-0.68); EOSINOPHILS PERCENT AUTO 1 % (0-6); Hematocrit 40.4 % (33.0-51.0); Hemoglobin 13.4 g/dL (11.5-16.0); IMMATURE GRAN ABSOLUTE AUTO 0.01 K/mm3 (0.00-0.10); IMMATURE GRAN PERCENT AUTO 0 % (0-1); LYMPHOCYTES ABSOLUTE AUTO 1.48 K/mm3 (0.84-5.20); LYMPHOCYTES PERCENT AUTO 21 % (21-46); MONOCYTES ABSOLUTE AUTO 0.69 K/mm3 (0.16-1.47); MONOCYTES PERCENT AUTO 10 % (4-13); Mean Corpuscular HGB 30.6 pg (26.0-34.0); Mean Corpuscular HGB Conc 33.2 g/dL (31.5-36.5); Mean Corpuscular Volume 92 fL (80-100); Mean Platelet Volume 12.3 fL (9.1-12.4); NEUTROPHILS ABSOLUTE AUTO 4.92 K/mm3 (1.96-9.15); NEUTROPHILS PERCENT AUTO 69 % (41-73); Platelet Count 286 K/mm3 (150-400); RDW Standard Deviation 43.8 fL (35.1-46.3); Red Blood Cell Count 4.38 M/mm3 (3.80-5.20); White Blood Cell Count 7.17 K/mm3 (4.00-11.30)
[2021-11-09 19:57] LABS: Free Thyroxine 1.32 ng/dL (0.70-1.60)
[2021-11-09 20:06] LABS: Thyroid Stimulating Hormone 2.16 uIU/mL (0.360-4.800); Triiodothyronine, Free 3.14 pg/mL (2.18-3.98)
[2021-11-09 20:07] LABS: Bilirubin, Total 0.3 mg/dL (0.1-1.0); Bun/Creatinine Ratio 24.5 (12.0-20.0); Calcium, Blood 9.5 mg/dL (8.5-10.1); Creatinine, Blood 0.7 mg/dL (0.40-1.00); Potassium, Blood 3.9 mmol/L (3.5-5.5)
== END | disposition home or self-care (01) ==
LOC: LAB SHORT 14:30
PROVIDERS: Hospitalist
DX: D50.9 Iron deficiency anemia, unspecified (principal); E03.9 Hypothyroidism, unspecified; R60.9 Edema, unspecified
CPT/HCPCS: 80053; 84439; 84443; 84481; 85025

== ENCOUNTER 2022-01-22 19:41 | Emergency (ER) | payer MEDICARE, OTHER ==
[~2022-01-22] VITALS: Ht 154.9 cm; Wt 79.4 kg
[2022-01-22 21:05] LABS: BASOPHILS ABSOLUTE AUTO 0.03 K/mm3 (0.00-0.23); BASOPHILS PERCENT AUTO 1 % (0-2); EOSINOPHILS ABSOLUTE AUTO 0.09 K/mm3 (0.00-0.68); EOSINOPHILS PERCENT AUTO 2 % (0-6); Hematocrit 38.3 % (33.0-51.0); Hemoglobin 12.8 g/dL (11.5-16.0); IMMATURE GRAN ABSOLUTE AUTO 0.01 K/mm3 (0.00-0.10); IMMATURE GRAN PERCENT AUTO 0 % (0-1); LYMPHOCYTES ABSOLUTE AUTO 2.11 K/mm3 (0.84-5.20); LYMPHOCYTES PERCENT AUTO 36 % (21-46); MONOCYTES ABSOLUTE AUTO 0.62 K/mm3 (0.16-1.47); MONOCYTES PERCENT AUTO 11 % (4-13); Mean Corpuscular HGB 30.7 pg (26.0-34.0); Mean Corpuscular HGB Conc 33.4 g/dL (31.5-36.5); Mean Corpuscular Volume 92 fL (80-100); Mean Platelet Volume 9.6 fL (9.1-12.4); NEUTROPHILS ABSOLUTE AUTO 2.98 K/mm3 (1.96-9.15); NEUTROPHILS PERCENT AUTO 51 % (41-73); Platelet Count 353 K/mm3 (150-400); RDW Standard Deviation 43.6 fL (35.1-46.3); Red Blood Cell Count 4.17 M/mm3 (3.80-5.20); White Blood Cell Count 5.84 K/mm3 (4.00-11.30)
[2022-01-22 21:24] LABS: Albumin, Blood 3.4 g/dL (3.4-5.0); Albumin/Globulin Ratio 0.8 (0.8-1.8); Bilirubin, Total 0.2 mg/dL (0.1-1.0); Bun/Creatinine Ratio 36.3 (12.0-20.0); Calcium, Blood 8.9 mg/dL (8.5-10.1); Creatinine, Blood 0.55 mg/dL (0.40-1.00); Potassium, Blood 3.9 mmol/L (3.5-5.5); Total Protein, Blood 7.4 g/dL (6.4-8.2)
[2022-01-22] MEDS ORDERED: KETO10 PO (23:26)
== END 2022-01-22 23:47 | disposition home or self-care (01) ==
LOC: ER 19:41
PROVIDERS: Emergency Medicine
DX: R51.9 Headache, unspecified (principal); I10 Essential (primary) hypertension; E03.9 Hypothyroidism, unspecified; Z88.6 Allergy status to analgesic agent; Z88.2 Allergy status to sulfonamides; Z88.8 Allergy status to other drugs, medicaments and biological substances; Z79.899 Other long term (current) drug therapy
CPT/HCPCS: 36415; 80053; 84484; 85025; 93005; 93010; J0780; J1200; J1885; J2405; J7030

== ENCOUNTER 2022-02-08 10:57 | Day surgery (SDC) | payer MEDICARE, OTHER ==
[~2022-02-08] VITALS: Ht 154.9 cm; Wt 84.7 kg
[~2022-02-08 10:57] MED LIST changes: +KETO10 PO
== END 2022-02-08 12:58 | disposition home or self-care (01) ==
LOC: ORSCSDS 10:57
PROVIDERS: Ophthalmology
PROC: 08DJ3ZZ Extraction of Right Lens, Percutaneous Approach (ICD-10-PCS; principal; 2022-02-08 12:00)
DX: H25.11 Age-related nuclear cataract, right eye (principal); H21.81 Floppy iris syndrome; F32.A Depression, unspecified; D64.9 Anemia, unspecified; E78.5 Hyperlipidemia, unspecified; E03.9 Hypothyroidism, unspecified; Z86.711 Personal history of pulmonary embolism; E66.9 Obesity, unspecified; Z68.35 Body mass index [BMI] 35.0-35.9, adult; Z79.899 Other long term (current) drug therapy
CPT/HCPCS: J2001; J2250; J3010; J3301; J7040; V2632

== ENCOUNTER 2022-02-22 12:20 | Day surgery (SDC) | payer MEDICARE, OTHER ==
[~2022-02-22] VITALS: Ht 154.9 cm; Wt 84.6 kg
[2022-02-22] MEDS ORDERED: ACET325 PO (13:40)
== END 2022-02-22 14:55 | disposition home or self-care (01) ==
LOC: ORSCSDS 12:20
PROVIDERS: Ophthalmology
PROC: 08DK3ZZ Extraction of Left Lens, Percutaneous Approach (ICD-10-PCS; principal; 2022-02-22 13:30)
DX: H25.12 Age-related nuclear cataract, left eye (principal); Z96.1 Presence of intraocular lens; H21.81 Floppy iris syndrome; I10 Essential (primary) hypertension; K21.9 Gastro-esophageal reflux disease without esophagitis; E66.9 Obesity, unspecified; Z68.35 Body mass index [BMI] 35.0-35.9, adult; E78.5 Hyperlipidemia, unspecified; E03.9 Hypothyroidism, unspecified; Z86.711 Personal history of pulmonary embolism; Z79.899 Other long term (current) drug therapy
CPT/HCPCS: J2001; J2250; J3010; J3301; J7040; V2632

== ENCOUNTER 2024-07-29 19:44 | Emergency (ER) | payer OTHER ==
[~2024-07-29] VITALS: Ht 160 cm; Wt 95.2 kg
[~2024-07-29 19:44] MED LIST changes: +FURO40 PO; +LOSA50 PO; +MELO7.5 PO; +WOMENS MULTIVITAMIN PO
[2024-07-29 21:16] LABS: BASOPHILS ABSOLUTE AUTO 0.03 K/mm3 (0.00-0.23); BASOPHILS PERCENT AUTO 0 % (0-2); EOSINOPHILS PERCENT AUTO 0 % (0-6); Hematocrit 42.1 % (33.0-51.0); IMMATURE GRAN ABSOLUTE AUTO 0.07 K/mm3 (0.00-0.10); IMMATURE GRAN PERCENT AUTO 0 % (0-1); LYMPHOCYTES PERCENT AUTO 8 % (21-46); MONOCYTES ABSOLUTE AUTO 0.93 K/mm3 (0.16-1.47); MONOCYTES PERCENT AUTO 6 % (4-13); Mean Corpuscular HGB 30.6 pg (26.0-34.0); Mean Corpuscular HGB Conc 33.3 g/dL (31.5-36.5); Mean Corpuscular Volume 92 fL (80-100); Mean Platelet Volume 9.5 fL (9.1-12.4); NEUTROPHILS ABSOLUTE AUTO 13.56 K/mm3 (1.96-9.15); NEUTROPHILS PERCENT AUTO 86 % (41-73); Platelet Count 333 K/mm3 (150-400); RDW Standard Deviation 43.8 fL (35.1-46.3); Red Blood Cell Count 4.57 M/mm3 (3.80-5.20); White Blood Cell Count 15.79 K/mm3 (4.00-11.30)
[2024-07-29 21:55] LABS: Albumin, Blood 3.9 g/dL (3.4-5.0); Albumin/Globulin Ratio 0.9 (0.8-1.8); Bilirubin, Total 0.6 mg/dL (0.1-1.0); Bun/Creatinine Ratio 30.3 (12.0-20.0); Calcium, Blood 9.3 mg/dL (8.5-10.1); Creatinine, Blood 0.69 mg/dL (0.40-1.00); Globulin, Blood 4.3 g/dL (2.2-4.0); Potassium, Blood 3.6 mmol/L (3.5-5.5); Total Protein, Blood 8.2 g/dL (6.4-8.2)
[2024-07-29] MEDS ORDERED: Ondansetron HCl 2 MG / ML 2ML Vial IV ONE (22:25)
[2024-07-29] MEDS ORDERED: Ketorolac Tromethamine 15mg Vial IV ONE (22:25)
[2024-07-29 23:00] VITALS: BP 147/80
[2024-07-30] MEDS ORDERED: Amoxicillin/Clavulanate K 875 MG Tab PO ONE (00:50)
[2024-07-30] MEDS ORDERED: Ondansetron Odt8 MG MM (00:54)
[2024-07-30] MEDS ORDERED: AMOCLA875 PO (00:54)
[2024-07-30] MEDS ORDERED: Acetaminophen 325 MG TABLET PO ONE (00:55)
== END 2024-07-30 01:45 | disposition home or self-care (01) ==
LOC: ER 19:44
PROVIDERS: Emergency Medicine
DX: K52.9 Noninfective gastroenteritis and colitis, unspecified (principal); K62.5 Hemorrhage of anus and rectum; E03.9 Hypothyroidism, unspecified; G43.909 Migraine, unspecified, not intractable, without status migrainosus; Z88.2 Allergy status to sulfonamides; Z88.1 Allergy status to other antibiotic agents; Z88.8 Allergy status to other drugs, medicaments and biological substances; Z79.890 Hormone replacement therapy; Z79.899 Other long term (current) drug therapy
CPT/HCPCS: 74174; 80053; 83605; 85025; 96374-59; 96375-59; 99284-25; A9270; J1885; J2405; Q9967